=== PATIENT | male | born 1965 | race Caucasian/White ===

== ENCOUNTER 2017-10-08 09:14 | Inpatient (IN) | payer BC ==
[~2017-10-08] VITALS: Ht 182.9 cm; Wt 132.6 kg
[~2017-10-08 09:14] MED LIST: ASPIRIN E.C. 8181 MG PO; DEPAKOTE ER 50500 MG PO; GLUCOPHAGE500 MG/TAB PO; LORTAB 10/500 51 TAB; MOBIC15 MG PO; Metformin; NEURONTIN300 MG/CAP PO; NORCO 325 MG-51 TAB PO; PRILOTC; VITAMIN D 50,1.25 MG PO; Vitamin D3; WELLBUTRIN 75MG75 MG PO; ZOCOR 40MG40 MG PO
[2017-11-26] MEDS ORDERED: WELLBUTRIN XL300 M1 PO (14:19)
[2017-11-26] MEDS ORDERED: NEURONTIN400 MG/CAP PO (14:20)
[2017-11-26] MEDS ORDERED: NEURONTIN800 MG/TAB PO (14:20)
[2017-11-26] MEDS ORDERED: VITAMIN D31000 IU PO (14:21)
[2017-11-26] MEDS ORDERED: FOLIC ACID0.4 MG PO (14:22)
[2017-11-26] MEDS ORDERED: VITAMIN C500 MG PO (14:22)
[2017-11-26] MEDS ORDERED: FERROUS GL325 MG/TAB PO (14:22)
[2017-11-26] MEDS ORDERED: NORCO 325 MG-7.1 TAB PO (14:23)
[2017-12-21] VITALS (11 sets, daily range): BP systolic 105–127; BP diastolic 54–81; PULSE 53–81; TEMP 97.5–97.8
[2017-12-22 04:30] VITALS: BP 110/64; PULSE 72; TEMP 97.9
[2017-12-22 07:48] VITALS: BP 125/71; PULSE 82; TEMP 97.8
[2017-12-22 12:12] VITALS: BP 109/66; PULSE 85; TEMP 97.6
[2017-12-22 16:32] VITALS: BP 138/76; PULSE 87; TEMP 98.4
[2017-12-22 20:23] VITALS: BP 123/76; PULSE 89; TEMP 97.4
[2017-12-22 23:59] VITALS: BP 138/66; PULSE 98; TEMP 97.7
[2017-12-23 02:53] VITALS: BP 129/71; PULSE 91; TEMP 98.3
[2017-12-23] MEDS ORDERED: ASPI325T6 PO (07:06)
[2017-12-23] MEDS ORDERED: NORCO 325 MG-7.1 TAB PO (07:07)
[2017-12-23] MEDS ORDERED: ROXICODONE 55 MG/TAB PO (07:08)
[2017-12-23] MEDS ORDERED: ZOFRAN 4MG T4 MG/TAB PO (07:13)
[2017-12-23 07:33] VITALS: BP 145/89; PULSE 84; TEMP 98
== END 2017-12-23 12:50 | disposition home or self-care (01) | DRG 470 ==
LOC: JCC 12-21 08:50
PROVIDERS: Orthopaedic Surgery
PROC: 0SRC0J9 Replacement of Right Knee Joint with Synthetic Substitute, Cemented, Open Approach (ICD-10-PCS; principal; 2017-12-21 13:00)
DX: M17.11 Unilateral primary osteoarthritis, right knee (principal); E11.9 Type 2 diabetes mellitus without complications; M79.7 Fibromyalgia; F43.12 Post-traumatic stress disorder, chronic; Z87.891 Personal history of nicotine dependence
CPT/HCPCS: A4314; A9284; C1713; C1776; J0690; J1885; J2250; J2405; J2704; J3010; J3260; J7120

== ENCOUNTER → 2017-12-10 | Outpatient (CLI) | payer BC ==
[~2017-12-10] MED LIST changes: -DEPAKOTE ER 50500 MG PO; +DEPAKOTE500 MG PO; +FERROUS GL325 MG/TAB PO; +FOLIC ACID0.4 MG PO; +NEURONTIN400 MG/CAP PO; +NEURONTIN800 MG/TAB PO; +NORCO 325 MG-7.1 TAB PO; +VITAMIN C500 MG PO; +VITAMIN D31000 IU PO; +WELLBUTRIN XL300 M1 PO
[2017-12-10 17:16] LABS: HIV 1/2 Antibodies Non-Reactive; HIV-1p24 Antigen Non-Reactive
== END ==
LOC: COL.LAB 16:12
PROVIDERS: Orthopaedic Surgery
DX: Z01.812 Encounter for preprocedural laboratory examination (principal); M17.11 Unilateral primary osteoarthritis, right knee

== ENCOUNTER → 2018-04-26 | Outpatient (CLI) | payer BC ==
[~2018-04-26] MED LIST changes: +ASPI325T6 PO; +DEPAKOTE ER 50500 MG PO; -DEPAKOTE500 MG PO; +ROXICODONE 55 MG/TAB PO; +ZOFRAN 4MG T4 MG/TAB PO
[2018-04-26 14:51] LABS: COLLECTION METHOD CLEAN CATCH
[2018-04-26 14:58] LABS: BASO # 0.1 (0.0-0.2); BASO % 1.1 % (0.0-2.0); EOS # 0.1 (0.0-0.7); EOS % 1.7 % (0-4.0); GRAN # 3.4 (1.4-6.5); GRAN % 52.6 % (42.2-75.2); HEMATOCRIT 43.5 % (42.0-52.0); LYMPH # 2.2 (1.2-3.4); LYMPH % 33.4 % (20.0-51.0); MEAN CELL VOLUME 88 fl (80.0-100.0); MEAN CORPUSCULAR HEMOGLOBIN 31 pg (27.0-31.0); MEAN CORPUSCULAR HGB CONC 35 g/dl (33.0-37.0); MEAN PLATELET VOLUME 9.2 fl (7.4-10.4); MONO # 0.7 (0.1-0.6); PLATELET COUNT 290 K/mm3 (130-400); RED BLOOD COUNT 4.92 M/mm3 (4.20-5.60); REDCELL DISTRIBUTION WIDTH-CV 12.1 % (11.5-14.5)
[2018-04-26 15:05] LABS: PH 5 (5-8); SQUAMOUS EPITHELIAL None Seen /hpf; URINE APPEARANCE Clear; URINE BACTERIA None Seen /hpf; URINE BILIRUBIN Negative (NEGATIVE); URINE BLOOD Negative (NEGATIVE); URINE COLOR Yellow; URINE GLUCOSE Negative (NEGATIVE); URINE KETONE Trace (NEGATIVE); URINE LEUKOCYTE ESTERASE Negative (NEGATIVE); URINE NITRATE Negative (NEGATIVE); URINE PROTEIN(semi-quant) Negative (NEGATIVE); URINE RBC 0-2 /hpf; URINE UROBILINOGEN Negative (NEGATIVE); URINE WBC 0-2 /hpf
[2018-04-26 15:08] LABS: ALANINE AMINOTRANSFERASE 19 U/L (21-72); ALBUMIN 4.3 gm/dL (3.5-5.0); ALKALINE PHOSPHATASE 48 U/L (50-136); ANION GAP 10 mmol/L (7-16); AST,SGOT 16 U/L (15-37); BILIRUBIN,TOTAL 0.4 mg/dL (0.0-1.0); BLOOD UREA NITROGEN 17 mg/dL (9-20); CALCIUM 9.3 mg/dL (8.4-10.2); CARBON DIOXIDE 27 mmol/L (22-30); CHLORIDE 103 mmol/L (98-107); CREATININE, serum 0.96 mg/dL (0.66-1.25); GLUCOSE 141 mg/dL (74-106); POTASSIUM 4.1 mmol/L (3.4-5.0); SODIUM 139 mmol/L (137-145); TOTAL PROTEIN 7.3 gm/dL (6.4-8.2)
[2018-04-26 15:09] LABS: C-REACTIVE PROTEIN < 0.5 mg/dL (0.0-0.9)
== END ==
LOC: COL.LAB 14:27
PROVIDERS: Family Medicine
DX: R10.9 Unspecified abdominal pain (principal)

== ENCOUNTER 2020-02-15 08:17 | Emergency (ER) | payer BC ==
[~2020-02-15] VITALS: Ht 182.9 cm; Wt 127.3 kg
[2020-02-15 08:32] VITALS: BP 144/96; TEMP 98.1
[2020-02-15] MEDS ORDERED: DEPAKOTE ER 25250 MG PO (09:03)
[2020-02-15] MEDS ORDERED: ASPIRIN E.C. 8181 MG PO (09:05)
[2020-02-15] MEDS ORDERED: GENTAMICIN EYE D5 ML OD (10:22)
[2020-02-15 10:40] VITALS: PULSE 86
== END 2020-02-15 10:40 | disposition home or self-care (01) ==
LOC: COL.ER 08:17
DX: S05.02XA Injury of conjunctiva and corneal abrasion without foreign body, left eye, initial encounter (principal); E11.9 Type 2 diabetes mellitus without complications; K21.9 Gastro-esophageal reflux disease without esophagitis; Z87.891 Personal history of nicotine dependence; Z79.84 Long term (current) use of oral hypoglycemic drugs; Z79.82 Long term (current) use of aspirin; X58.XXXA Exposure to other specified factors, initial encounter

== ENCOUNTER 2023-01-23 05:37 | Day surgery (SDC) | payer OTHER ==
[~2023-01-23] VITALS: Ht 188 cm; Wt 109.6 kg
[~2023-01-23 05:37] MED LIST changes: +DEPAKOTE ER 25250 MG PO; +GENTAMICIN EYE D5 ML OD
[2023-01-23 06:08] VITALS: BP 116/70; PULSE 74; TEMP 97.3
[2023-01-23] MEDS ORDERED: CRESTOR 10MG10 MG PO (06:16)
[2023-01-23] MEDS ORDERED: ALLEGRA 180MG180 MG PO (06:16)
[2023-01-23] MEDS ORDERED: WELLBUTRIN XL300 M1 PO (06:19)
[2023-01-23] MEDS ORDERED: VITAMIN D362.5 MC1 PO (06:19)
[2023-01-23] MEDS ORDERED: MOBIC15 MG PO (06:20)
[2023-01-23] MEDS ORDERED: OZEMPIC1 MG/0.71 SQ (06:21)
[2023-01-23] MEDS ORDERED: FLONASE NASAL S16 GM NS (06:22)
[2023-01-23 07:42] VITALS: BP 103/80; PULSE 72; TEMP 97.4
--- NOTE | 2023-01-23 07:43 | NUR ---
PATIENT AMBULATED TO BAY 2 WITH STEADY GAIT. ALERT AND ORIENTED X4. PATIENT STATED UNDERSTANDING OF PROCEDURE. CONSENTS SIGNED. ASSESSMENT COMPLETED. 20G IV STARTED IN LEFT HAND. LR INFUSING WITHOUT DIFFICUTLIES. BLOOD GLUCOSE 105. WARM BLANKET PROVIDED. NO FURTHER NEEDS NOTED. RESTING IN RECLINER. CALL LIGHT IN REACH. AT BEDSIDE.
[2023-01-23 07:57] VITALS: BP 120/77; PULSE 66
[2023-01-23 08:12] VITALS: BP 117/85; PULSE 68
--- NOTE | 2023-01-23 08:25 | NUR ---
0742 RETURNS TO ROOM 2 PER CART AWAKE, ALERT. AMBULATES TO RECLINER WITH STANDBY ASSIST. RESP UNLABORED. DENIES NAUSEA, ABD/CHEST PAIN OR DYSPHAGIA. VITAL SIGNS OBTAINED. CALL LIGHT AT SIDE. IN ROOM 0748 DR. MOTA HERE TO VISIT WITH PATIENT 0800 TOLERATES PO SODA WITHOUT NAUSEA. SWALLOWS WITHOUT DIFFICULTY 0805 DISCHARGE INSTRUCTIONS REVIEWED. PATIENT VERBALIZES UNDERSTANDING. COPY PROVIDED IN DISCHARGE FOLDER 0816 DRESSES SELF.
== END 2023-01-23 08:25 | disposition home or self-care (01) ==
LOC: SDCO 05:37
DX: D12.3 Benign neoplasm of transverse colon (principal); K20.90 Esophagitis, unspecified without bleeding; K29.50 Unspecified chronic gastritis without bleeding; K57.30 Diverticulosis of large intestine without perforation or abscess without bleeding; R15.2 Fecal urgency; R19.5 Other fecal abnormalities; Z87.891 Personal history of nicotine dependence
CPT/HCPCS: J2704; J7120

== ENCOUNTER → 2023-12-15 | Outpatient (CLI) | payer OTHER ==
[~2023-12-15] VITALS: Ht 188 cm; Wt 120.0 kg
[~2023-12-15] MED LIST changes: +ALLEGRA 180MG180 MG PO; +CRESTOR 10MG10 MG PO; +FLONASE NASAL S16 GM NS; +OZEMPIC1 MG/0.71 SQ; +RISPERDAL2 MG PO; +SINGULAIR 110 MG/TAB PO; +VITAMIN D362.5 MC1 PO
[2023-12-15 14:30] VITALS: BP 120/75; PULSE 87; TEMP 97.5
[2023-12-15 15:15] VITALS: BP 115/72; PULSE 75
--- NOTE | 2023-12-15 15:33 | NUR ---
1515--TOOK OVER CARE OF THIS PATIENT FROM VICK MARTÍNEZ. REPORT GIVEN BESIDE PATIENT. PATIENT ALREADY HAS HIS WRITTEN D/C INSTRUCTIONS AND IS ABLE TO TEACH THEM BACK. ALL NEEDS MET.
--- NOTE | 2023-12-15 15:36 | NUR ---
PATIENT COMPLETED HIS RECOVERY TIME WITHOUT ANY ISSUES. PATIENT DENIES ANY PAIN. BANDAGE IS CLEAN, DRY, AND INTACT. ESCORTED PATIENT AND HIS TO THE ELEVATOR WITH ALL OF THEIR BELONGINGS. ALL NEEDS MET.
== END ==
LOC: COL.RAD 13:45
DX: E04.1 Nontoxic single thyroid nodule (principal); Z01.89 Encounter for other specified special examinations